=== PATIENT | male | born 1935 ===

== ENCOUNTER → 2023-08-23 11:20 | Outpatient (REF) | payer MEDICARE, BC, SELFPAY ==
[2023-08-23 12:21] LABS: % Basophils 0.4 % (0-2); % Eosinophils 2.2 % (0-6); % Immature Granulocytes 0.5 % (0-0.5); % Lymphocytes 10.7 % (20.5-51.1); % Monocytes 9.5 % (1.7-9.3); % Neutrophils 76.7 % (42.2-75.2); Absolute Eosinophils 0.2 10^3/uL (0-0.7); Absolute Immature Granulocytes 0.1 10^3/uL (0-0.05); Absolute Monocytes 0.9 10^3/uL (0.1-0.6); Absolute Neutrophils 7.2 10^3/uL (1.4-6.5); Hematocrit 34.8 % (39.0-52.0); Hemoglobin 11.2 g/dL (13.0-18.0); Mean Corp Hgb Conc. 32.2 g/dL (33.0-37.0); Mean Corpuscular Hgb 28.9 pg (27.0-31.0); Mean Corpuscular Volume 89.9 fL (80.0-94.0); Mean Platelet Volume 10.4 fL (7.4-10.4); Nucleated Red Blood Cells % 0 % (-); Platelet Count 216 10^3/uL (130-400); Red Blood Cell Count 3.87 10^6/uL (4.70-6.10); Red Cell Dist. Width 16.2 % (11.5-14.5); White Blood Cell Count 9.4 10^3/uL (4.8-10.8)
[2023-08-23 12:25] LABS: ALT (SGPT) 99 U/L (0-50); AST (SGOT) 67 U/L (17-59); Albumin 3.8 g/dl (3.5-5.0); Alkaline Phosphatase 90 U/L (38-126); Blood Urea Nitrogen 44 mg/dl (9-20); Calcium 9.4 mg/dl (8.4-10.2); Carbon Dioxide 27 mmol/L (22-30); Chloride 99 mmol/L (98-107); Direct Bilirubin 0.2 mg/dl (0.0-0.4); Glucose 118 mg/dl (70-99); Iron 87 ug/dl (49-181); Sodium 136 mmol/L (135-145); Total Bilirubin 0.4 mg/dl (0.2-1.3); Total Protein 6.2 g/dl (6.3-8.2); eGFR > 60.00
[2023-08-23 12:34] LABS: Percent Saturation 34 % (20-50); Total Iron Binding Capacity 253 ug/dl (261-462)
[2023-08-24 12:03] LABS: Erythropoietin (EPO) 6 mU/mL (4-27)
== END ==
LOC: OLABP 11:20
PROVIDERS: ATTENDING PHYSICIAN Family Medicine
DX: J44.9 Chronic obstructive pulmonary disease, unspecified (principal); E11.9 Type 2 diabetes mellitus without complications; D50.9 Iron deficiency anemia, unspecified; R91.8 Other nonspecific abnormal finding of lung field; D12.6 Benign neoplasm of colon, unspecified; C7A.8 Other malignant neuroendocrine tumors; N17.9 Acute kidney failure, unspecified; N18.9 Chronic kidney disease, unspecified; E78.5 Hyperlipidemia, unspecified; R53.82 Chronic fatigue, unspecified; M62.81 Muscle weakness (generalized); R26.2 Difficulty in walking, not elsewhere classified; F32.9 Major depressive disorder, single episode, unspecified; I21.4 Non-ST elevation (NSTEMI) myocardial infarction; R13.10 Dysphagia, unspecified; I13.10 Hypertensive heart and chronic kidney disease without heart failure, with stage 1 through stage 4 chronic kidney disease, or unspecified chronic kidney disease; I25.10 Atherosclerotic heart disease of native coronary artery without angina pectoris
CPT/HCPCS: 36415; 80053; 82248; 82668; 82728; 83540; 83550; 85025

== ENCOUNTER → 2023-08-26 10:13 | Outpatient (REF) | payer MEDICARE, BC, SELFPAY | LOC: RST 10:13 | PROVIDERS: ATTENDING PHYSICIAN Internal Medicine Hematology & Oncology; FAMILY PHYSICIAN Family Medicine | DX: C34.2 Malignant neoplasm of middle lobe, bronchus or lung (principal); D12.6 Benign neoplasm of colon, unspecified; N18.30 Chronic kidney disease, stage 3 unspecified; R13.10 Dysphagia, unspecified | CPT/HCPCS: 74230; 92611 ==

== ENCOUNTER 2023-09-07 06:12 | Day surgery (SDC) | payer MEDICARE, BC, SELFPAY ==
[2023-09-07 14:00] VITALS: BMI 20.4
[2023-09-07 14:15] VITALS: BP 152/56
[2023-09-07 14:20] VITALS: BMI 20.4
[2023-09-07 15:50] VITALS: BP 185/70
[2023-09-07 15:55] VITALS: BP 176/59
[2023-09-07 16:00] VITALS: BP 161/57
[2023-09-07 16:15] VITALS: BP 157/60
[2023-09-07 16:25] VITALS: BP 158/62
== END 2023-09-07 16:40 | disposition home or self-care (01) ==
LOC: GI 06:12
PROVIDERS: ATTENDING PHYSICIAN Surgery
DX: D12.7 Benign neoplasm of rectosigmoid junction (principal); K56.690 Other partial intestinal obstruction
CPT/HCPCS: 45331; 45335; 88305

== ENCOUNTER → 2023-09-21 14:19 | Outpatient (REF) | payer MEDICARE, BC, SELFPAY ==
[2023-09-21 15:00] LABS: % Basophils 0.2 % (0-2); % Eosinophils 1.7 % (0-6); % Immature Granulocytes 0.7 % (0-0.5); % Lymphocytes 5.3 % (20.5-51.1); % Monocytes 10.2 % (1.7-9.3); % Neutrophils 81.9 % (42.2-75.2); Absolute Eosinophils 0.2 10^3/uL (0-0.7); Absolute Immature Granulocytes 0.1 10^3/uL (0-0.05); Absolute Lymphocytes 0.7 10^3/uL (1.2-3.4); Absolute Monocytes 1.4 10^3/uL (0.1-0.6); Absolute Neutrophils 10.8 10^3/uL (1.4-6.5); Hematocrit 37.3 % (39.0-52.0); Hemoglobin 12.2 g/dL (13.0-18.0); Mean Corp Hgb Conc. 32.7 g/dL (33.0-37.0); Mean Corpuscular Hgb 30.1 pg (27.0-31.0); Mean Corpuscular Volume 92.1 fL (80.0-94.0); Mean Platelet Volume 10.1 fL (7.4-10.4); Nucleated Red Blood Cells % 0 % (-); Platelet Count 251 10^3/uL (130-400); Red Blood Cell Count 4.05 10^6/uL (4.70-6.10); Red Cell Dist. Width 15.3 % (11.5-14.5); White Blood Cell Count 13.2 10^3/uL (4.8-10.8)
[2023-09-21 15:20] LABS: Blood Urea Nitrogen 43 mg/dl (9-20); Calcium 9.4 mg/dl (8.4-10.2); Carbon Dioxide 25 mmol/L (22-30); Chloride 98 mmol/L (98-107); Glucose 87 mg/dl (70-99); Potassium 4.3 mmol/L (3.5-5.1); Sodium 135 mmol/L (135-145); eGFR > 60.00
== END ==
LOC: OLABP 14:19
PROVIDERS: ATTENDING PHYSICIAN Family Medicine
DX: J44.9 Chronic obstructive pulmonary disease, unspecified (principal); E11.9 Type 2 diabetes mellitus without complications; D50.9 Iron deficiency anemia, unspecified; R91.8 Other nonspecific abnormal finding of lung field; D12.6 Benign neoplasm of colon, unspecified; C7A.8 Other malignant neuroendocrine tumors; N17.9 Acute kidney failure, unspecified; N18.9 Chronic kidney disease, unspecified; E78.5 Hyperlipidemia, unspecified; R53.82 Chronic fatigue, unspecified; M62.81 Muscle weakness (generalized); R26.2 Difficulty in walking, not elsewhere classified; F32.9 Major depressive disorder, single episode, unspecified; I21.4 Non-ST elevation (NSTEMI) myocardial infarction; R13.10 Dysphagia, unspecified; I25.10 Atherosclerotic heart disease of native coronary artery without angina pectoris
CPT/HCPCS: 36415; 80048; 85025

== ENCOUNTER → 2023-09-22 17:27 | Outpatient (REF) | payer MEDICARE, BC, SELFPAY ==
[2023-09-22 20:41] LABS: Urine Albumin Negative (Neg - Trace); Urine Bilirubin Negative (Negative); Urine Character Clear (Clear); Urine Color Yellow; Urine Glucose Negative (Negative); Urine Ketone Negative (Negative); Urine Leukocyte Negative (Negative); Urine Nitrite Negative (Negative); Urine Occult Blood Negative (Negative); Urine Specific Gravity 1.015 (<1.030); Urine Urobilinogen Negative (Neg - 1+)
== END ==
LOC: OLABP 17:27
PROVIDERS: ATTENDING PHYSICIAN Family Medicine
DX: N19 Unspecified kidney failure (principal)
CPT/HCPCS: 81003

== ENCOUNTER → 2023-09-30 13:09 | Outpatient (REF) | payer MEDICARE, BC, SELFPAY | LOC: RAD 13:09 | PROVIDERS: ATTENDING PHYSICIAN Internal Medicine Hematology & Oncology; FAMILY PHYSICIAN Family Medicine | DX: C34.2 Malignant neoplasm of middle lobe, bronchus or lung (principal); D12.6 Benign neoplasm of colon, unspecified; N18.30 Chronic kidney disease, stage 3 unspecified | CPT/HCPCS: 71260; Q9967 ==

== ENCOUNTER 2023-10-05 09:29 | Day surgery (SDC) | payer MEDICARE, BC, SELFPAY ==
[2023-10-05 12:07] VITALS: BMI 19.9
[2023-10-05 14:06] VITALS: BP 151/66
[2023-10-05 14:15] VITALS: BP 162/63
[2023-10-05 14:23] VITALS: BP 170/66
[2023-10-05 15:10] VITALS: BP 176/60
== END 2023-10-05 15:15 | disposition home or self-care (01) ==
LOC: SDS 09:29
PROVIDERS: ATTENDING PHYSICIAN Internal Medicine Gastroenterology
DX: D12.7 Benign neoplasm of rectosigmoid junction (principal); K64.0 First degree hemorrhoids; K57.30 Diverticulosis of large intestine without perforation or abscess without bleeding
CPT/HCPCS: 45349; 88305

== ENCOUNTER → 2023-12-17 10:03 | Outpatient (REF) | payer MEDICARE, BC, SELFPAY ==
[2023-12-17 11:23] LABS: Hematocrit 34.9 % (39.0-52.0); Hemoglobin 11.7 g/dL (13.0-18.0); Mean Corp Hgb Conc. 33.5 g/dL (33.0-37.0); Mean Corpuscular Volume 92.6 fL (80.0-94.0); Mean Platelet Volume 10.3 fL (7.4-10.4); Platelet Count 188 10^3/uL (130-400); Red Blood Cell Count 3.77 10^6/uL (4.70-6.10); Red Cell Dist. Width 13.2 % (11.5-14.5); White Blood Cell Count 11.2 10^3/uL (4.8-10.8)
[2023-12-17 11:32] LABS: Blood Urea Nitrogen 40 mg/dl (9-20); Calcium 9.4 mg/dl (8.4-10.2); Carbon Dioxide 27 mmol/L (22-30); Chloride 100 mmol/L (98-107); Glucose 86 mg/dl (70-99); Potassium 3.9 mmol/L (3.5-5.1); Sodium 140 mmol/L (135-145); eGFR > 60.00
== END ==
LOC: OLABP 10:03
PROVIDERS: ATTENDING PHYSICIAN Family Medicine
DX: J44.9 Chronic obstructive pulmonary disease, unspecified (principal); E11.9 Type 2 diabetes mellitus without complications; D50.9 Iron deficiency anemia, unspecified; R91.8 Other nonspecific abnormal finding of lung field; D12.6 Benign neoplasm of colon, unspecified; C7A.8 Other malignant neuroendocrine tumors; N17.9 Acute kidney failure, unspecified; N18.9 Chronic kidney disease, unspecified; E78.5 Hyperlipidemia, unspecified; R53.82 Chronic fatigue, unspecified; F32.9 Major depressive disorder, single episode, unspecified; R26.2 Difficulty in walking, not elsewhere classified; I21.4 Non-ST elevation (NSTEMI) myocardial infarction; R13.10 Dysphagia, unspecified; I25.10 Atherosclerotic heart disease of native coronary artery without angina pectoris
CPT/HCPCS: 36415; 80048; 85027

== ENCOUNTER → 2023-12-23 16:09 | Outpatient (REF) | payer MEDICARE, BC, SELFPAY ==
[2023-12-23 17:00] LABS: Urine Albumin Trace (Neg - Trace); Urine Bilirubin Negative (Negative); Urine Character Clear (Clear); Urine Color Yellow; Urine Glucose Negative (Negative); Urine Ketone Negative (Negative); Urine Leukocyte Negative (Negative); Urine Nitrite Negative (Negative); Urine Occult Blood Negative (Negative); Urine Urobilinogen Negative (Neg - 1+)
== END ==
LOC: OLABP 16:09
PROVIDERS: ATTENDING PHYSICIAN Family Medicine
DX: J44.9 Chronic obstructive pulmonary disease, unspecified (principal); E11.9 Type 2 diabetes mellitus without complications; D50.9 Iron deficiency anemia, unspecified; R91.8 Other nonspecific abnormal finding of lung field; D12.6 Benign neoplasm of colon, unspecified; C7A.8 Other malignant neuroendocrine tumors; N17.9 Acute kidney failure, unspecified; N18.9 Chronic kidney disease, unspecified; E78.5 Hyperlipidemia, unspecified; R53.82 Chronic fatigue, unspecified; M62.81 Muscle weakness (generalized); R26.2 Difficulty in walking, not elsewhere classified; F32.9 Major depressive disorder, single episode, unspecified; I21.4 Non-ST elevation (NSTEMI) myocardial infarction; R13.10 Dysphagia, unspecified; I13.10 Hypertensive heart and chronic kidney disease without heart failure, with stage 1 through stage 4 chronic kidney disease, or unspecified chronic kidney disease; I25.10 Atherosclerotic heart disease of native coronary artery without angina pectoris
CPT/HCPCS: 81003

== ENCOUNTER 2023-12-27 13:06 | Emergency (ER) | payer MEDICARE, BC, SELFPAY ==
[2023-12-27 13:16] VITALS: BP 131/95
[2023-12-27 13:45] VITALS: BMI 20.9
[2023-12-27] MEDS: LIDOCAINE URO-JET 2% 1 SYRINGE TOPICAL (14:01)
--- NOTE | 2023-12-27 14:02 | ED.GENMED ---
History of Present Illness
General
Chief Complaint: Male Genito-Urinary Symptoms
Source: patient
Exam Limitations: none
Time Seen by Provider: 12/27/23 13:40
History of Present Illness
History of Present Illness:
88-year-old male with history of dementia from [place] accompanied by his advocate and girlfriend who states that the patient has been having difficulty urinating and notes increased frequency of urination. When he does go healing gets a couple
drops out. He was thought to be retaining urine in the catheter attempt was tried [place] but was unsuccessful. Caregiver states that they are initiating hospice care as he has a feeding tube dementia history of lung cancer. No reported fever.
No other complaints at this time
Phy Exam
Physical Exam
Physical Exam:
General: Well-appearing male no acute respiratory distress
HEENT: Normocephalic atraumatic
Heart: Regular rate and rhythm no murmurs
Lungs: Clear no wheeze
Abdomen soft slight suprapubic tenderness no guarding rebound normal bowel sounds
Extremities: No cyanosis
Course
Orders/Labs/Results
Orders:
Orders
12/27/23 13:56
Lidocaine 2% [Lidocaine Uro-Jet 2%] 1 syringe .ROUTE .[facility]
12/27/23 13:57
Lidocaine 2% [Lidocaine Uro-Jet 2%] 1 syringe TOPICAL NOW STA
12/27/23 14:00
Espinoza Placement- Treatment ONCE
Reason for insertion: Acute Retention
Vital Signs
Initial and Last Documented VS:
Initial Vital Signs
Temp Pulse Resp BP Pulse Ox
97.9 F 86 18 131/95 98
12/27/23 13:16 12/27/23 13:16 12/27/23 13:16 12/27/23 13:16 12/27/23 13:16
Last Documented Vital Signs
Temp Pulse Resp BP Pulse Ox
97.9 F 78 18 151/70 95
12/27/23 13:16 12/27/23 14:54 12/27/23 14:54 12/27/23 14:54 12/27/23 14:54
MDM/Problems Addressed
Differential Diagnosis Includes:
Difficulty urinating. Bedside bladder scan shows greater than 450 mL in his bladder. Will attempt Espinoza placement for urinary retention. Goal on caregivers behalf is to provide comfort and given discharge back to [facility] for hospice.
*Critical Care Note
Total Time (30-74mins, 75-104mins- exclusive of procedures): Not Applicable
Update Note
Update Note:
Catheter placed. Bladder evacuated. No indication for admission will be discharged back to [facility]
ED Attending Note
-
Portions of this chart may have been created with voice recognition software.� Occasional wrong word or��sound alike� substitutions may have occurred due to the inherent limitations of voice recognition software.
Discharge Plan
Departure
Patient Disposition: Home (Routine Discharge)
Date of Disposition: 12/27/23
Time of Disposition: 15:40
Patient with high blood pressure during this ER visit?: No
Discharge Problem:
Acute urinary retention
Instructions: How to Care for Your Espinoza Catheter, Male
Prescriptions:
No Action
hydralazine 25 mg Tablet
25 mg PO TID
clopidogrel [Plavix] 75 mg Tablet
75 mg PO DAILY
famotidine [Pepcid] 20 mg Tablet
20 mg PO HS
ascorbic acid (vitamin C) [Vitamin C] 500 mg Tablet,Chewable
500 mg PO DAILY
escitalopram oxalate [Lexapro] 20 mg Tablet
20 mg PO DAILY
Anoro Ellipta 62.5-25 mcg/actuation Blister With Device
1 inh INHALATION DAILY
melatonin 3 mg Capsule
3 mg PO HS PRN (Reason: sleep)
aspirin 81 mg Capsule
81 mg PO DAILY
Referrals:
Marco Antonio Beyer MD [Active] -
Madhav Rocha MD [Family Provider] -
Activity Restrictions/Additional Instructions:
Please follow-up with urology for further evaluation. Return here if needed otherwise
Interventions
Interventions:
*Risk Screen - Suicide Last Done: 12/27/23 13:19
*General Assessment Last Done: 12/27/23 13:19
*Neglect/Abuse Screening Last Done: 12/27/23 13:19
ED- Fall Risk Assessment Last Done: 12/27/23 13:50
*ED COVID-19 Vaccine History Last Done: 12/27/23 13:19
ED-Male Genitourinary Assessment Last Done: 12/27/23 13:50
Discharge Date and Time
Print Language: [id number]
[2023-12-27 14:54] VITALS: BP 151/70
[2023-12-27 16:09] VITALS: BP 150/61
== END 2023-12-27 16:13 | disposition home or self-care (01) ==
LOC: EMR 13:06
PROVIDERS: EMERGENCY PHYSICIAN Emergency Medicine; FAMILY PHYSICIAN Family Medicine
DX: R33.9 Retention of urine, unspecified (principal); F03.90 Unspecified dementia, unspecified severity, without behavioral disturbance, psychotic disturbance, mood disturbance, and anxiety
CPT/HCPCS: 99283; 51798; 51702